=== PATIENT | male | born 1960 | race Caucasian/White ===

== ENCOUNTER 2016-11-01 13:13 | Outpatient (CLI) | payer OTHER ==
--- NOTE | 2016-11-01 22:02 | RAD ---
CHEST TWO VIEWS 11/01/16 The lungs are mildly hyperexpanded with slight flattening of the diaphragm. The lungs are clear. No infiltrate, effusion, or other parenchymal change was seen. The heart is normal in size. The mediast inum appears normal and the trachea is midline. IMPRESSION: Mildly hyperexpanded lungs, but no acute findings otherwise. POS: HOME
== END 2016-11-01 13:14 | disposition home or self-care (01) ==
LOC: BURRAD 13:13
PROVIDERS: ATTEND Nurse Practitioner
DX: Z72.0 Tobacco use (principal)
CPT/HCPCS: 71020

== ENCOUNTER 2022-10-31 11:44 | Emergency (ER) | payer OTHER ==
[2022-10-31] MEDS ORDERED: Lidocaine 2% w/Epinephrine 1:200K 20 ML VIAL ONE (11:57)
[2022-10-31] MEDS ORDERED: Boostrix 0.5 ML (Tdap) VIAL (>/=7 yrs of age) ONE (11:57)
[2022-10-31] MEDS ORDERED: Bacitracin 1 PK ONE (12:14)
== END 2022-10-31 12:25 | disposition home or self-care (01) ==
LOC: BURERS 11:44
DX: S91.142A Puncture wound with foreign body of left great toe without damage to nail, initial encounter (principal); I10 Essential (primary) hypertension; F17.210 Nicotine dependence, cigarettes, uncomplicated; W45.8XXA Other foreign body or object entering through skin, initial encounter
CPT/HCPCS: 28190; 90715